=== PATIENT | male | born 1970 | race Caucasian/White ===

== ENCOUNTER 2017-07-25 18:21 | Emergency (ER) | payer OTHER ==
[~2017-07-25] VITALS: Ht 172.7 cm; Wt 100.0 kg
[2017-07-25 18:21] VITALS: BP 132/87
[2017-07-25] MEDS ORDERED: NORCO, ANEXSIA 5/325MG TABLET (HYDROcodone/ACETAMINOPHEN) PO ONE (19:00)
[2017-07-25] MEDS ORDERED: HYDR-3713 PO (19:19)
--- NOTE | 2017-07-26 08:50 | REP ---
UNILATERAL RIGHT RIBS, PA CHEST, FIVE VIEWS: HISTORY: Trauma. The lungs are clear. The heart is normal in size. The pulmonary vasculature is normal in appearance. The bony structure is intact. IMPRESSION: No acute disease. Signed by Gatito Hi MD 07/26/2017 08:59 A
== END 2017-07-25 19:48 | disposition home or self-care (01) ==
LOC: M ED 18:21
DX: S20.211A Contusion of right front wall of thorax, initial encounter (principal); W10.8XXA Fall (on) (from) other stairs and steps, initial encounter; Y92.099 Unspecified place in other non-institutional residence as the place of occurrence of the external cause; Y93.01 Activity, walking, marching and hiking; Y99.9 Unspecified external cause status

== ENCOUNTER 2019-11-05 16:58 | Emergency (ER) | payer OTHER ==
[~2019-11-05] VITALS: Ht 172.7 cm; Wt 93.2 kg
[~2019-11-05 16:58] MED LIST: HYDR-3713 PO
[2019-11-05 16:59] VITALS: BP 132/77
[2019-11-05] MEDS ORDERED: IBUPROFEN 600 MG TAB PO ONE (17:30)
[2019-11-05] MEDS ORDERED: FLUO10CA8 PO (17:50)
--- NOTE | 2019-11-06 09:26 | REP ---
LEFT KNEE, COMPLETE: 11/05/2019. COMPARISON: 12/04/2009. CLINICAL HISTORY: Medial knee pain, skiing injury. FINDINGS: The patient has hardware, femoral and tibial tunnels from prior ACL repair. Spurs on the tibial spines are noted along with the femoral tibial tunnels and hardware from ACL repair in both the proximal tibia and lateral distal femur. Small joint effusion difficult to exclude. Small spurs in the tibial spines and tiny spur at insertion of the quadriceps tendon seen. No patellar subluxation or dislocation. IMPRESSION: 1. Mild degenerative changes with spurring of the tibial spines and joint margins and a suspected small joint effusion. No loose body, osteochondral defect, fracture, or avulsion. 2. Status post ACL repair with tibial and femoral tunnels as well as hardware associated with both. Electronically Signed by Francisco Walls MD 11/06/2019 10:16 A
== END 2019-11-05 19:02 | disposition home or self-care (01) ==
LOC: M ED 16:58
DX: S83.8X2A Sprain of other specified parts of left knee, initial encounter (principal); X50.9XXA Other and unspecified overexertion or strenuous movements or postures, initial encounter; Y92.89 Other specified places as the place of occurrence of the external cause; Y93.23 Activity, snow (alpine) (downhill) skiing, snowboarding, sledding, tobogganing and snow tubing; Z79.899 Other long term (current) drug therapy

== ENCOUNTER → 2021-06-22 | Outpatient (CLI) | payer OTHER ==
[~2021-06-22] MED LIST changes: +FLUO10CA16 PO
--- NOTE | 2021-06-22 09:30 | REP ---
INDICATION: GENERALIZED ABD PAIN. COMPARISON: Comparison study July 25, 2017.. TECHNIQUE: Upright chest radiograph is obtained along with supine and upright views of the abdomen. Three views. FINDINGS: Upright chest radiograph shows no evidence of infiltrate or free subdiaphragmatic air. There is a small linear density in the right base consistent with platelike atelectasis. Supine and erect views the abdomen show clips in the right upper quadrant. Psoas margins and flank stripes are intact. No mass, organomegaly, or pathologic calcification is seen. The bowel gas pattern is normal. IMPRESSION: Negative acute abdominal series post cholecystectomy. Mild platelike atelectasis right base.. <Electronically signed by Fan Randhawa > 06/22/21 [id number]
[2021-06-22 10:07] LABS: BASO % 0.5 % (0.0-1.0); EOS # 0.1 10^3/uL (0.0-0.5); EOS % 1.7 % (0.0-3.0); HEMATOCRIT 48.8 % (42.0-52.0); HEMOGLOBIN 16.6 g/dl (13.5-17.5); LYMPH # 1.4 10^3/uL (1.5-5.0); LYMPH % 21.2 % (24.0-44.0); MEAN CORPUSCULAR HEMOGLOBIN 29.4 pg (27.0-33.0); MEAN CORPUSCULAR VOLUME 86.4 fl (80.0-96.0); MONO # 0.6 10^3/uL (0.0-0.8); MONO % 9.3 % (2.0-8.0); NEUTROPHILS # 4.4 10^3/uL (1.5-8.5); NEUTROPHILS % 66.8 % (36.0-66.0); PLATELET COUNT, AUTOMATED 148 10^3/uL (150-450); RED BLOOD COUNT 5.65 10^6/uL (4.30-6.10)
[2021-06-22 10:27] LABS: ALBUMIN 3.8 GM/DL (3.2-5.2); ALT/SGPT 43 U/L (12-78); AMYLASE 71 U/L (25-115); BILIRUBIN,TOTAL 0.6 MG/DL (0.2-1.0); BLOOD UREA NITROGEN 20 MG/DL (7-18); CALCIUM LEVEL 8.4 MG/DL (8.5-10.1); CARBON DIOXIDE LEVEL 26 MEQ/L (21-32); CHLORIDE LEVEL 110 MEQ/L (98-107); GLOMERULAR FILTRATION RATE > 60.0 (>56); GLUCOSE, FASTING 102 MG/DL (70-100); LIPASE 138 U/L (73-393); POTASSIUM SERUM 4.7 MEQ/L (3.5-5.1); SODIUM LEVEL 143 MEQ/L (136-145); TOTAL PROTEIN 6.6 GM/DL (6.4-8.2)
[2021-06-24 06:24] LABS: WHITE BLOOD COUNT 6.6 10^3/uL (4.0-10.0)
== END ==
LOC: M LAB 08:57
PROVIDERS: ATTEND Physician Assistant
DX: R10.84 Generalized abdominal pain (principal); K59.00 Constipation, unspecified; Z90.49 Acquired absence of other specified parts of digestive tract

== ENCOUNTER → 2021-11-27 | Outpatient (CLI) | payer OTHER ==
[~2021-11-27] MED LIST changes: +BUPR-69 PO; +D3 H2000 PO; +OXCA150T21 PO
== END ==
LOC: M LABSMTC 10:13
PROVIDERS: ATTEND Anesthesiology
DX: Z01.812 Encounter for preprocedural laboratory examination (principal); Z11.52 Encounter for screening for COVID-19

== ENCOUNTER 2021-12-02 07:19 | Day surgery (SDC) | payer OTHER ==
[~2021-12-02] VITALS: Ht 172.7 cm; Wt 103.1 kg
[~2021-12-02 07:19] MED LIST changes: +LIDOCAINE 2% 100MG/5ML SDV (FOR ANES.) As Ordered ONE; +NS 1,000 ML IV SCH; +propofoL 200 MG/20 ML VIAL As Ordered ONE
--- NOTE | 2021-12-02 09:05 | ROOR ---
Patient Name: Jeo Lind Procedure Date: 12/02/2021 8:43 AM Date of : 1970 Age: 51 Room: [facility] Gender: Male Note Status: Finalized Procedure: Colonoscopy Indications: High risk colon cancer surveillance: Personal history of colonic polyps, Family history of colon cancer Providers: Adriel Peres MD Referring MD: [facility] [place], [facility], Admin. Requesting Provider: Medicines: Monitored Anesthesia Care Complications: No immediate complications. Procedure: Pre-Anesthesia Assessment: - The heart rate, respiratory rate, oxygen saturations, blood pressure, adequacy of pulmonary ventilation, and response to care were monitored throughout the procedure. The Colonoscope was introduced through the anus and advanced to the terminal ileum, with identification of the appendiceal orifice and IC valve. The colonoscopy was performed without difficulty. The patient tolerated the procedure well. The quality of the bowel preparation was good. Findings: The perianal and digital rectal examinations were normal. A 8 mm polyp was found in the splenic flexure. The polyp was sessile. The polyp was removed with a cold snare. Resection and retrieval were complete. Internal hemorrhoids were found during retroflexion. The hemorrhoids were medium-sized. The exam was otherwise without abnormality on direct and retroflexion views. Impression: - One 8 mm polyp at the splenic flexure, removed with a cold snare. Resected and retrieved. - Internal hemorrhoids. - The examination was otherwise normal on direct and retroflexion views. Recommendation: - Repeat colonoscopy in 5 years for surveillance. Procedure Code(s): --- Professional --- 99744, Colonoscopy, flexible; with removal of tumor(s), polyp(s), or other lesion(s) by snare technique Diagnosis Code(s): --- Professional --- Z86.010, Personal history of colonic polyps K63.5, Polyp of colon K64.8, Other hemorrhoids Z80.0, Family history of malignant neoplasm of digestive organs CPT copyright 2019 [employer]. All rights reserved. The codes documented in this report are preliminary and upon resource manager forester review may be revised to meet current compliance requirements. Adriel Peres MD Adriel Peres MD 12/02/2021 9:05:38 AM Electronically signed by Adriel Peres MD Number of Addenda: 0 Note Initiated On: 12/02/2021 8:43 AM Estimated Blood Loss: Estimated blood loss: none.
[2021-12-02 09:25] VITALS: BP 112/71
== END 2021-12-02 09:50 | disposition home or self-care (01) ==
LOC: M OPP 07:19
PROVIDERS: ATTEND Internal Medicine Gastroenterology
DX: Z12.11 Encounter for screening for malignant neoplasm of colon (principal); Z86.010 Personal history of colon polyps; Z80.0 Family history of malignant neoplasm of digestive organs; D12.3 Benign neoplasm of transverse colon; K64.8 Other hemorrhoids; Z79.899 Other long term (current) drug therapy; Z88.0 Allergy status to penicillin; Z88.1 Allergy status to other antibiotic agents; Z87.891 Personal history of nicotine dependence

== ENCOUNTER → 2021-12-28 | Outpatient (CLI) | payer OTHER ==
[~2021-12-28] MED LIST changes: -FLUO10CA16 PO; +FLUO10CA18 PO; -LIDOCAINE 2% 100MG/5ML SDV (FOR ANES.) As Ordered ONE; -NS 1,000 ML IV SCH; -propofoL 200 MG/20 ML VIAL As Ordered ONE
== END ==
LOC: M RAD 10:57
PROVIDERS: ATTEND Physician Assistant
DX: M54.9 Dorsalgia, unspecified (principal)

== ENCOUNTER → 2021-12-28 | Outpatient (REF) | payer OTHER ==
[2021-12-28 22:50] LABS: APPEARANCE, URINE CLEAR (CLEAR); BACTERIA, URINE AUTO NEGATIVE (NEGATIVE); BILIRUBIN, URINE AUTO NEGATIVE (NEGATIVE); BLOOD, URINE BLOOD 2+ (NEGATIVE); COLOR, URINE YELLOW (YELLOW); GLUCOSE, URINE (UA) AUTO NEGATIVE (NEGATIVE); KETONE, URINE AUTO NEGATIVE (NEGATIVE); LEUKOCYTE ESTERASE, URINE AUTO NEGATIVE (NEGATIVE); MUCUS, URINE SMALL (NEGATIVE); NITRITE, URINE AUTO NEGATIVE (NEGATIVE); PROTEIN, URINE AUTO NEGATIVE (NEGATIVE); RBC, URINE AUTO 0 /HPF (0-3); SPECIFIC GRAVITY URINE AUTO 1.009 (1.002-1.035); SQUAMOUS EPITHELIAL CELL UR AU 0 /HPF (0-6); UROBILINOGEN, URINE AUTO 0.2 mg/dL (0.0-2.0); WBC, URINE AUTO 0 /HPF (0-3)
== END ==
LOC: M LAB REF 22:23
PROVIDERS: ATTEND Physician Assistant
DX: N39.0 Urinary tract infection, site not specified (principal)

== ENCOUNTER → 2023-04-23 | Outpatient (CLI) | payer OTHER | LOC: M RAD 07:22 | PROVIDERS: ATTEND Nurse Practitioner Family | DX: M19.011 Primary osteoarthritis, right shoulder (principal); M85.421 Solitary bone cyst, right humerus ==

== ENCOUNTER → 2024-06-09 | Outpatient (REF) | payer OTHER ==
[~2024-06-09] MED LIST changes: +FLUO-290 PO; -FLUO10CA18 PO
[2024-06-09 13:16] LABS: APPEARANCE, URINE HAZY (CLEAR); BACTERIA, URINE AUTO NEGATIVE (NEGATIVE); BILIRUBIN, URINE AUTO NEGATIVE (NEGATIVE); BLOOD, URINE BLOOD 1+ (NEGATIVE); COLOR, URINE YELLOW (YELLOW); GLUCOSE, URINE (UA) AUTO NEGATIVE (NEGATIVE); KETONE, URINE AUTO NEGATIVE (NEGATIVE); LEUKOCYTE ESTERASE, URINE AUTO 2+ (NEGATIVE); MUCUS, URINE SMALL (NEGATIVE); NITRITE, URINE AUTO NEGATIVE (NEGATIVE); PROTEIN, URINE AUTO NEGATIVE (NEGATIVE); RBC, URINE AUTO 6 /HPF (0-3); SPECIFIC GRAVITY URINE AUTO 1.024 (1.002-1.035); SQUAMOUS EPITHELIAL CELL UR AU 0 /HPF (0-6); UROBILINOGEN, URINE AUTO 0.2 mg/dL (0.0-2.0); WBC, URINE AUTO 111 /HPF (0-3)
== END ==
LOC: M LAB REF 12:21
PROVIDERS: ATTEND Physician Assistant Medical
DX: N39.0 Urinary tract infection, site not specified (principal)